=== PATIENT | male | born 1980 | race Caucasian/White ===

== ENCOUNTER 2020-09-07 11:36 | Outpatient (CLI) | payer BC | END 2020-09-07 11:37 | disposition home or self-care (01) | LOC: BICRAD 11:36 | PROVIDERS: ATTEND Internal Medicine | DX: M51.16 Intervertebral disc disorders with radiculopathy, lumbar region (principal) | CPT/HCPCS: 72100 ==

== ENCOUNTER 2022-02-01 15:00 | Outpatient (CLI) | payer BC | END 2022-02-01 15:01 | disposition home or self-care (01) | LOC: SCSMRI 15:00 | PROVIDERS: ATTEND Internal Medicine | DX: M51.36 Other intervertebral disc degeneration, lumbar region (principal); M51.37 Other intervertebral disc degeneration, lumbosacral region | CPT/HCPCS: 72148 ==